=== PATIENT | male | born 1975 | race Caucasian/White ===

== ENCOUNTER 2017-08-04 02:20 | Emergency (ER) | payer SELFPAY ==
--- NOTE | 2017-08-04 02:36 | ED.PDOC ---
History of Present Illness - General Chief Complaint: Chest Pain/NH Stated Complaint: Heart racing Time Seen by Provider: 08/04/17 02:26 Source: patient Exam Limitations: no limitations - History of Present Illness Initial Comments: Franky Baez 42 y/o male stated woke up tonight feeling that his heart was racing.No chest pains no SOB no dizziness,no diaphoresis.Stated first time that he had rapid heart rate.Woke up his and was brought to ER Timing/Duration: 1-3 hours, other - NO CHEST PAINS Location: other - NO CHEST PAINS Activities at Onset: sleep Prior Chest Pain/Cardiac Workup: no prior cardiac workup Allergies/Adverse Reactions: Allergies NO KNOWN ALLERGY Allergy (Verified 01/15/14 14:33) Home Medications: Ambulatory Orders Acetaminophen W/ Codeine [Tylenol W/ CODEINE #3] 1 ea PO Q4H PRN #12 01/15/14 Ibuprofen [Motrin Tab] 600 mg PO Q8H PRN #15 tab 01/15/14 Lisinopril [Prinivil] 5 mg PO DAILY 01/15/14 Review of Systems - Review of Systems Constitutional: States: no symptoms reported EENTM: States: no symptoms reported Respiratory: States: no symptoms reported Cardiology: States: see HPI Gastrointestinal/Abdominal: States: no symptoms reported All other Systems: Reviewed and Negative, No Change from Baseline Past Medical History (General) - Patient Medical History Hx Seizures: No Hx Stroke: No Hx Dementia: No Hx Asthma: No Hx of COPD: No Hx Cardiac Disorders: No Hx Congestive Heart Failure: No Hx Pacemaker: No Hx Hypertension: Yes Hx Thyroid Disease: No Hx Diabetes: No Hx Gastroesophageal Reflux: No Hx Renal Disease: No Hx Cancer: No Hx of HIV: No Hx Hepatitis C: No Hx MRSA: No Hx Other PMH: Yes - sleep apnea Surgical History: no surgical history - Vaccination History Hx Tetanus, Diphtheria Vaccination: Yes Hx Influenza Vaccination: No Hx Pneumococcal Vaccination: No - Social History Hx Tobacco Use: Yes Hx Chewing Tobacco Use: Yes Hx Alcohol Use: No Hx Substance Use: No Hx Substance Use Treatment: No Hx Depression: No Hx Physical Abuse: No Hx Emotional Abuse: No Family Medical History - Family History Paternal Hx Cardiac Disease: Yes Hx Family Diabetes: Yes Hx Family Cancer: Yes Maternal Hx Family Hypertension: Yes Hx Cardiac Disease: Yes Hx Family Diabetes: Yes Hx Family;Other: thyroid Physical Exam - Physical Exam General Appearance: Alert, Comfortable, No apparent distress Eyes, Ears, Nose, Throat Exam: normal ENT inspection Neck: full range of motion, supple, normal inspection Respiratory: chest non-tender, lungs clear, normal breath sounds, no respiratory distress Cardiovascular/Chest: normal peripheral pulses, no gallop, no murmur, irregularly irregular Gastrointestinal/Abdominal: non tender, soft, no organomegaly Extremity: non-tender, no pedal edema, no calf tenderness Neurologic: alert, oriented x 3 Skin Exam: normal color, warm/dry Progress - Progress Progress: 08/04/17 03:30 Vital Signs - 24 hr 08/04/17 08/04/17 08/04/17 02:22 02:30 02:50 Temperature 97.8 F Pulse Rate 134 H Pulse Rate [ 143 H Apical] Pulse Rate [ 137 H Left Radial] Respiratory 22 Rate Blood Pressure 192/99 216/106 163/82 [Left Arm] O2 Sat by Pulse 92 L Oximetry 08/04/17 08/04/17 03:00 03:05 Temperature Pulse Rate Pulse Rate [ Apical] Pulse Rate [ Left Radial] Respiratory Rate Blood Pressure 150/99 154/103 [Left Arm] O2 Sat by Pulse Oximetry - Results/Orders Results/Orders: 08/04/17 03:30 [email or web address] DRIP [Cardizem Drip] 125 mg Sodium Chloride 0.9% 100Ml [NS (NACL 0.9 %) 100ml] 100 ml IVPB PRN 08/04/17 03:45 EKG STAT Laboratory Results - last 24 hr 08/04/17 08/04/17 08/04/17 02:35 03:45 03:45 WBC 11.2 H RBC 5.81 Hgb 16.8 Hct 49.4 MCV 85.1 MCH 28.9 MCHC 33.9 RDW 14.0 Plt Count 283 MPV 8.5 Absolute Neuts (auto) 6.20 Absolute Lymphs (auto) 3.80 H Absolute Monos (auto) 1.00 H Absolute Eos (auto) 0.20 Absolute Basos (auto) 0.10 Neutrophils % 54.9 Lymphocytes % 33.7 Monocytes % 8.6 Eosinophils % 1.9 Basophils % 0.9 PT 12.1 INR 1.040 PTT (SP) 33.8 Sodium 139 Potassium 3.0 L Chloride 103 Carbon Dioxide 26 Anion Gap 13.0 BUN 10 Creatinine 0.91 BUN/Creatinine Ratio 11.0 Random Glucose 110 H Serum Osmolality 277.2 Calcium 9.1 Magnesium 2.1 Total Bilirubin 0.6 Direct Bilirubin 0.1 Indirect Bilirubin 0.5 AST 37 ALT 54 Alkaline Phosphatase 138 H Creatine Kinase 157 CK-MB (CK-2) 2.2 CK-MB (CK-2) % Not Reportable Troponin I < 0.02 B-Natriuretic Peptide 10.5 Serum Total Protein 8.0 Albumin 4.3 TSH 3.18 Urine Color Yellow Urine Appearance Clear Urine pH 5.5 Ur Specific [place] 1.015 Urine Protein Negative Urine Glucose (UA) Negative Urine Ketones Negative Urine Blood Negative Urine Nitrite Negative Urine Bilirubin Negative Urine Urobilinogen 0.2 Ur Leukocyte Esterase Negative Urine RBC 0 Urine WBC 0 Ur Epithelial Cells 0 Urine Bacteria Rare Urine Mucus Trace Urine Opiates Screen Negative Urine Barbiturates Negative Ur Phencyclidine Scrn Negative U Amphetamin/Meth Scrn Negative U Benzodiazepines Scrn Negative U Cocaine Metab Screen Negative U Cannabinoids Screen Negative - EKG/XRAY/CT EKG: Atrial, Fibrillation Comments: [id number] RVR XRAY: chest - borderline cardiomegaly Departure - Departure Clinical Impression: New onset atrial fibrillation Hypertension Qualifiers: Hypertension type: unspecified Qualified Code(s): I10 - Essential (primary) hypertension Time of Disposition: 05:33 Disposition: Transfer to Hospital Condition: Fair Departure Forms: Patient Portal Self Enrollment Home Medications: Ambulatory Orders Acetaminophen W/ Codeine [Tylenol W/ CODEINE #3] 1 ea PO Q4H PRN #12 01/15/14 Ibuprofen [Motrin Tab] 600 mg PO Q8H PRN #15 tab 01/15/14 Lisinopril [Prinivil] 5 mg PO DAILY 01/15/14 Transfer to Outside Facility - Transfer Information Accepting Provider:: D/W Dr. 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
[2017-08-04] MEDS ORDERED: LABETALOL INJ 5 MG/ML VIAL IV ONE (02:40)
[2017-08-04] MEDS ORDERED: LABETALOL INJ 5 MG/ML VIAL ONE (02:41)
[2017-08-04] MEDS ORDERED: POTASSIUM CHLORIDE 20 MEQ TAB PO ONE (03:08)
[2017-08-04] MEDS ORDERED: diltiaZEM DRIP 125 MG in SODIUM CHLORIDE 0.9% 100ML 100 ML IVPB SCH (03:30)
[2017-08-04] MEDS ORDERED: SODIUM CHLORIDE 0.9% 100ML 100 ML IVPB ONE (03:36)
[2017-08-04] MEDS ORDERED: diltiaZEM DRIP 125 MG/25 ML VIAL IVPB ONE (03:37)
--- NOTE | 2017-08-04 03:37 | RAD ---
Chest single view on 08/04/2017 CLINICAL INDICATION: Palpitations COMPARISON: None FINDINGS: Borderline cardiomegaly is noted. There is slight elevation of the right hemidiaphragm. The lungs are clear. Hilar and mediastinal contours are within normal limits. On a vascularity is within normal limits. IMPRESSION: No acute disease. Electronically signed by: David aYnes 08/04/2017 3:36 AM CDT
[2017-08-04 04:15] VITALS: TEMP 98.2
[2017-08-04 05:54] VITALS: BP 143/94; O2SAT 93
== END 2017-08-04 06:05 | disposition short-term general hospital (02) ==
LOC: ER 02:20
DX: I48.91 Unspecified atrial fibrillation (principal); I10 Essential (primary) hypertension; G47.30 Sleep apnea, unspecified; Z87.891 Personal history of nicotine dependence
CPT/HCPCS: 36415; 71045; 80048; 80076; 80307; 81001; 82550; 82553; 83880; 84443; 84484; 85025; 85610; 85730; 93005; J7050

== ENCOUNTER 2017-08-09 20:17 | Emergency (ER) | payer SELFPAY ==
[2017-08-09] MEDS ORDERED: METOPROLOL TARTRATE INJ 5 MG/5 ML VIAL IV ONE ×2 (20:31→20:33)
--- NOTE | 2017-08-09 20:33 | ED.PDOC ---
History of Present Illness - General Stated Complaint: PALPITAIONS Time Seen by Provider: 08/09/17 20:31 Source: patient Exam Limitations: no limitations - History of Present Illness Timing/Duration: 1/2 hour Severity: mild Improving Factors: nothing Worsening Factors: nothing Associated Symptoms: denies symptoms Allergies/Adverse Reactions: Allergies NO KNOWN ALLERGY Allergy (Verified 01/15/14 14:33) Home Medications: Ambulatory Orders Lisinopril [Prinivil] 20 mg PO DAILY 01/15/14 Metoprolol Tartrate 08/09/17 Review of Systems - Review of Systems Constitutional: States: no symptoms reported EENTM: States: no symptoms reported Respiratory: States: no symptoms reported Cardiology: States: palpitations Gastrointestinal/Abdominal: States: no symptoms reported Genitourinary: States: no symptoms reported Neurological: States: no symptoms reported Endocrine: States: no symptoms reported Hematologic/Lymphatic: States: no symptoms reported Past Medical History (General) - Patient Medical History Hx Seizures: No Hx Stroke: No Hx Dementia: No Hx Asthma: No Hx of COPD: No Hx Cardiac Disorders: No Hx Congestive Heart Failure: No Hx Pacemaker: No Hx Hypertension: Yes Hx Thyroid Disease: No Hx Diabetes: No Hx Gastroesophageal Reflux: No Hx Renal Disease: No Hx Cancer: No Hx of HIV: No Hx Hepatitis C: No Hx MRSA: No - Vaccination History Hx Tetanus, Diphtheria Vaccination: Yes Hx Influenza Vaccination: No Hx Pneumococcal Vaccination: No - Social History Hx Tobacco Use: Yes Hx Chewing Tobacco Use: Yes Hx Alcohol Use: No Hx Substance Use: No Hx Substance Use Treatment: No Hx Depression: No Hx Physical Abuse: No Hx Emotional Abuse: No Hx Suspected Abuse: No - Female History Patient : No Family Medical History - Family History Paternal Living Status: Age at (years of age): 53 Cause of : [place] Hx Family Asthma: No Hx Family Congestive Heart Failure: Yes Hx Family Hypertension: Yes Hx Family Stroke: No Hx Cardiac Disease: Yes Hx Family Diabetes: Yes Hx Family Cancer: Yes Maternal Living Status: Still Living Hx Family Asthma: No Hx Family Congestive Heart Failure: No Hx Family Hypertension: Yes Hx Family Stroke: No Hx Cardiac Disease: Yes Hx Family Diabetes: Yes Hx Family Cancer: Yes - Lung Hx Family;Other: thyroid Physical Exam - Physical Exam General Appearance: Alert, Comfortable Eye Exam: bilateral normal Ears, Nose, Throat: hearing grossly normal, normal ENT inspection, normal pharynx Neck: non-tender, full range of motion, supple Respiratory: chest non-tender, lungs clear, normal breath sounds, no respiratory distress, no accessory muscle use Cardiovascular/Chest: normal peripheral pulses, no edema, no gallop, no murmur, tachycardia Peripheral Pulses: radial,right: 2+, radial,left: 2+, femoral,right: 2+, femoral ,left: 2+, dorsalis pedis,right: 2+, dorsalis pedis,left: 2+ Gastrointestinal/Abdominal: normal bowel sounds, non tender, no organomegaly, no pulsatile mass Back Exam: normal inspection, no CVA tenderness, no vertebral tenderness Neurologic: aerospace control and warning systems II-XII nml as tested, no motor/sensory deficits, alert, normal mood/affect, oriented x 3 Progress - Results/Orders Results/Orders: REASSESSMENT PATIENT RESPONDED WELL TO LOPRESSOR HE IS ASYMPTOMATIC ANXIOUS TO GO HOME READY TO BE DISCHARGED Departure - Departure Clinical Impression: Palpitations, Hypertension Time of Disposition: 21:29 Disposition: Discharge to Home or Self Care Condition: Good Home Medications: Ambulatory Orders Lisinopril [Prinivil] 20 mg PO DAILY 01/15/14 Metoprolol Tartrate 08/09/17
[2017-08-09 21:42] VITALS: TEMP 97.5
[2017-08-09 21:49] VITALS: BP 126/72; O2SAT 95
== END 2017-08-09 21:49 | disposition home or self-care (01) ==
LOC: ER 20:17
DX: R00.2 Palpitations (principal); I10 Essential (primary) hypertension; Z87.891 Personal history of nicotine dependence

== ENCOUNTER 2018-03-14 20:15 | Emergency (ER) | payer SELFPAY ==
[2018-03-14 20:42] VITALS: TEMP 97.9; O2SAT 98
--- NOTE | 2018-03-14 21:10 | RAD ---
EXAM: Hand,Left 3 Views CLINICAL INDICATION: Left hand trauma, left hand pain COMPARISON: There is no previous study for comparison. FINDINGS: Three views of the left hand reveal no acute fracture or dislocation. There are two metallic foreign bodies in the soft tissues along the radial aspect of the proximal index finger including a 2.4 x 1.0 mm structure adjacent to the proximal phalanx and a 1.0 x 1.0 mm foreign body adjacent to the second metacarpal head. No other foreign bodies are seen. No bony destructive process is identified. IMPRESSION: Two small foreign bodies. Otherwise, no acute traumatic injury. Electronically signed by: Lit Bliss MD 03/14/2018 9:09 PM [facility]
--- NOTE | 2018-03-14 21:29 | RAD ---
EXAM: Wrist,Left 3 Views CLINICAL INDICATION: Left wrist pain, patient fell COMPARISON: There is no previous study for comparison. FINDINGS:Three views of the left wrist reveal no fracture. The carpal bones and carpal interosseous spaces are intact. There are no radiopaque foreign bodies. The osseous structures are intact and unremarkable. IMPRESSION: Negative left wrist radiographs. Electronically signed by: Lit Bliss MD 03/14/2018 9:28 PM [facility]
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
[2018-03-14 22:31] VITALS: BP 147/88
== END 2018-03-14 22:30 | disposition home or self-care (01) ==
LOC: ER 20:15
DX: S63.502A Unspecified sprain of left wrist, initial encounter (principal); I10 Essential (primary) hypertension; I48.91 Unspecified atrial fibrillation; W01.0XXA Fall on same level from slipping, tripping and stumbling without subsequent striking against object, initial encounter; Y92.9 Unspecified place or not applicable; Z79.899 Other long term (current) drug therapy; Y93.89 Activity, other specified; Z87.891 Personal history of nicotine dependence

== ENCOUNTER 2018-04-10 21:10 | Emergency (ER) | payer SELFPAY ==
[2018-04-10 21:24] VITALS: BP 172/102; TEMP 98.6; O2SAT 98
--- NOTE | 2018-04-10 21:31 | ED.PDOC ---
History of Present Illness - General Chief Complaint: ENT Problem Stated Complaint: ear pain/congestion Time Seen by Provider: 04/10/18 21:28 Source: patient Exam Limitations: no limitations - History of Present Illness Timing/Duration: abrupt, this morning Severity: moderate EENT Location: ear (L) Prearrival Treatment: no prearrival treatment Improving Factors: nothing Worsening Factors: nothing Associated Symptoms: nasal congestion/drainage, sore throat Allergies/Adverse Reactions: Allergies NO KNOWN ALLERGY Allergy (Verified 01/15/14 14:33) Home Medications: Ambulatory Orders Lisinopril [Prinivil] 20 mg PO DAILY 01/15/14 Amoxicillin & Pot Clavulanate [Augmentin Tab] 875 mg PO BID #20 tab 04/10/18 Metoprolol Succinate [Metoprolol Succinate ER] 50 mg PO BID 04/10/18 Tramadol HCl 50 mg PO Q4HR PRN #20 tab 04/10/18 Review of Systems - Review of Systems Constitutional: Denies: chills, fever EENTM: States: ear pain, nose congestion. Denies: throat pain, throat swelling Respiratory: Denies: cough, short of breath Cardiology: Denies: chest pain Gastrointestinal/Abdominal: Denies: nausea, vomiting Musculoskeletal: States: no symptoms reported Skin: States: no symptoms reported Neurological: States: no symptoms reported Past Medical History (General) - Patient Medical History Hx Seizures: No Hx Stroke: No Hx Dementia: No Hx Asthma: No Hx of COPD: No Hx Cardiac Disorders: Yes - a-fib Hx Congestive Heart Failure: No Hx Pacemaker: No Hx Hypertension: Yes Hx Thyroid Disease: No Hx Diabetes: No Hx Gastroesophageal Reflux: No Hx Renal Disease: No Hx Cancer: No Hx of HIV: No Hx Hepatitis C: No Hx MRSA: No Surgical History: no surgical history - Vaccination History Hx Tetanus, Diphtheria Vaccination: Yes Hx Influenza Vaccination: No Hx Pneumococcal Vaccination: No - Social History Hx Tobacco Use: Yes Hx Chewing Tobacco Use: Yes Hx Alcohol Use: No Hx Substance Use: No Hx Substance Use Treatment: No Hx Depression: No Hx Physical Abuse: No Hx Emotional Abuse: No Hx Suspected Abuse: No - Female History Patient : No - Triage Comment ED Triage Comment: Nasal drainage, ears hurt and feel congested/pressure Family Medical History - Family History Paternal Living Status: Age at (years of age): 53 Cause of : [place] Hx Family Asthma: No Hx Family Congestive Heart Failure: Yes Hx Family Hypertension: Yes Hx Family Stroke: No Hx Cardiac Disease: Yes Hx Family Diabetes: Yes Hx Family Cancer: Yes Maternal Living Status: Still Living Hx Family Asthma: No Hx Family Congestive Heart Failure: No Hx Family Hypertension: Yes Hx Family Stroke: No Hx Cardiac Disease: Yes Hx Family Diabetes: Yes Hx Family Cancer: Yes - Lung Hx Family;Other: thyroid Physical Exam - Physical Exam General Appearance: Alert, Restless Eye Exam: bilateral normal Ear Exam: bilateral ear: TM red Nasal Exam: normal inspection Throat Exam: pharynx normal Neck: non-tender, full range of motion Cardiovascular/Respiratory: regular rate, rhythm Departure - Departure Clinical Impression: Otitis media Qualifiers: Otitis media type: suppurative Chronicity: acute Laterality: bilateral Recurrence: non-recurrent Disposition: Discharge to Home or Self Care Departure Forms: ED Discharge - Pt. Copy, Patient Portal Self Enrollment Prescriptions: Tramadol HCl 50 mg PO Q4HR PRN #20 tab PRN Reason: Moderate To Severe Pain Amoxicillin & Pot Clavulanate [Augmentin Tab] 875 mg PO BID #20 tab Home Medications: Ambulatory Orders Lisinopril [Prinivil] 20 mg PO DAILY 01/15/14 Amoxicillin & Pot Clavulanate [Augmentin Tab] 875 mg PO BID #20 tab 04/10/18 Metoprolol Succinate [Metoprolol Succinate ER] 50 mg PO BID 04/10/18 Tramadol HCl 50 mg PO Q4HR PRN #20 tab 04/10/18
[2018-04-10] MEDS ORDERED: HYDROcodone 7.5MG/APAP 325MG 1 EA TAB PO ONE (21:38)
[2018-04-10] MEDS ORDERED: AMOXICILLIN & POT CLAVULANATE 875 MG TAB PO ONE (21:39)
== END 2018-04-10 21:49 | disposition home or self-care (01) ==
LOC: ER 21:10
DX: H66.93 Otitis media, unspecified, bilateral (principal); I48.91 Unspecified atrial fibrillation; I10 Essential (primary) hypertension; Z87.891 Personal history of nicotine dependence

== ENCOUNTER 2018-09-19 20:33 | Emergency (ER) | payer SELFPAY ==
--- NOTE | 2018-09-19 20:53 | ED.PDOC ---
History of Present Illness - General Chief Complaint: Abdominal Pain Stated Complaint: abdominal pain Time Seen by Provider: 09/19/18 20:36 Information Source: patient Exam Limitations: no limitations - History of Present Illness Initial Comments: patient comes in today with 12 hour history of right lower quadrant abdominal pain. Patient states the pain comes and goes and seems to get better when he pulls his knees up or when he stands straight. The pain is a 6 out of 10 at its worst and not associated with any diarrhea or constipation. Patient's had no nausea or vomiting and denies any fever or chills although he does have increased temp on arrival. Patient has had no questionable by mouth intake and no recent travel. Patient does have a history of atrial fibrillation, hypertension, and obstructive sleep apnea. He also states that several years ago he started having severe abdominal pain and was found to have a spontaneous perforation in his colon. He was placed on antibiotics and did not have to have surgery at that time and has not had any problems since. He states he has not passed any gas since his bowel movement at approximately noon today. Abdominal Pain Onset Location: RLQ Pain Radiation: no radiation Quality: moderate, intermittent, sharpness Timing/Duration: 24 hours Improving Factors: movement Worsening Factors: nothing Associated Symptoms: denies symptoms Review of Systems - Review of Systems Constitutional: States: no symptoms reported. Denies: chills, fever, malaise EENTM: States: no symptoms reported Respiratory: States: no symptoms reported. Denies: cough, short of breath Cardiology: States: no symptoms reported. Denies: chest pain, edema, palpitations Gastrointestinal/Abdominal: States: abdominal pain. Denies: constipation, diarrhea, nausea, vomiting Genitourinary: States: no symptoms reported. Denies: discharge, dysuria, frequency, hematuria Musculoskeletal: States: no symptoms reported Skin: States: rash - senior care rash on abdomen from belt buckle Past Medical History (General) - Patient Medical History Hx Seizures: No Hx Stroke: No Hx Dementia: No Hx Asthma: No Hx of COPD: No Hx Cardiac Disorders: Yes - a-fib Hx Congestive Heart Failure: No Hx Pacemaker: No Hx Hypertension: Yes Hx Thyroid Disease: No Hx Diabetes: No Hx Gastroesophageal Reflux: No Hx Renal Disease: No Hx Cancer: No Hx of HIV: No Hx Hepatitis C: No Hx MRSA: No - Vaccination History Hx Tetanus, Diphtheria Vaccination: Yes Hx Influenza Vaccination: No Hx Pneumococcal Vaccination: No - Social History Hx Tobacco Use: Yes Hx Chewing Tobacco Use: Yes Hx Alcohol Use: No Hx Substance Use: No Hx Substance Use Treatment: No Hx Depression: No Hx Physical Abuse: No Hx Emotional Abuse: No Hx Suspected Abuse: No - Female History Patient : No - Triage Comment ED Triage Comment: lower abdominal pain since 0900, intermittant in nature, denies N/V/D. Family Medical History - Family History Paternal Living Status: Age at (years of age): 53 Cause of : [place] Hx Family Asthma: No Hx Family Congestive Heart Failure: Yes Hx Family Hypertension: Yes Hx Family Stroke: No Hx Cardiac Disease: Yes Hx Family Diabetes: Yes Hx Family Cancer: Yes Maternal Living Status: Still Living Hx Family Asthma: No Hx Family Congestive Heart Failure: No Hx Family Hypertension: Yes Hx Family Stroke: No Hx Cardiac Disease: Yes Hx Family Diabetes: Yes Hx Family Cancer: Yes - Lung Hx Family;Other: thyroid Physical Exam - Physical Exam General Appearance: Alert, Comfortable, No apparent distress Eyes, Ears, Nose, Throat Exam: PERRL/EOMI, normal ENT inspection, TMs normal, pharynx normal Neck: non-tender, full range of motion, supple, normal inspection Respiratory: chest non-tender, lungs clear, normal breath sounds, no respiratory distress Cardiovascular/Chest: normal peripheral pulses, regular rate, rhythm, no edema, no murmur Peripheral Pulses: No deficit Gastrointestinal/Abdominal: soft, tenderness - TTP RLQ with no rebound no guarding, other - no blanching erythematous plaque on lower abdomen Progress - Progress Progress: 09/19/18 22:08 Discussed with patient results. He understands even if no perforation now it can happen again and if he worsens he should return immediately. Patient is feeling better and understands precautions. - Results/Orders Results/Orders: Patient Name: NOEMI SANCHEZ Gender: Male Date of : 1975 Referring Physician: JUANA ARROYO Organization: [facility] Accession Number: [id number] Requested Date: September 19, 2018 20:50 Report Status: Final Requested Procedure: 1 Procedure Description: Abdoment/Pelvis w/o Contrast Modality: CT Findings Reporting MD: Rowena Hussein MD: Not available Dictation Time: Vehicle Service Attendant: Not available Donor Relations Officer Date: PROCEDURE: CT Abdomen/Pelvis w/o Contrast CLINICAL HISTORY: 43 years Male RLQ pain, hx of perforation colon TECHNIQUE: Contiguous axial images obtained through the abdomen and pelvis without IV contrast. Coronal and sagittal reformatted images provided. This CT exam was performed according to our departmental dose-optimization program, which includes one or more of the following dose reduction techniques: automated exposure control, adjustment of the mA and/or kV according to patient size, and/or use of iterative reconstruction technique. COMPARISON: Comparison is made to the prior examination dated 11/18/2008. FINDINGS: There are acute inflammatory changes in the central upper pelvis, centered at an inflamed mid sigmoid diverticulum. There are a few bubbles of gas in the wall of the inflamed diverticulum. No definite free intraperitoneal air or drainable abscess. There is diffuse sigmoid diverticulosis. No bowel obstruction or other bowel inflammation. Normal appendix. Mild patchy bibasilar atelectasis. Steatosis of the liver, which is enlarged without focal lesion on this noncontrast study. Fatty replacement of the pancreas. The spleen, adrenal glands, kidneys, urinary bladder, and osseous structures are normal. IMPRESSION: Acute mid sigmoid diverticulitis. There our a few bubbles of gas in the wall of the inflamed diverticulum without definite free intraperitoneal air, drainable abscess, or bowel obstruction. Electronically signed by: Rowena Hussein MD 09/19/2018 9:24 PM CDT Laboratory Results WBC 11.8 K/mm3 (4.8-10.8) H 09/19/18 21:10 RBC 4.89 M/mm3 (4.70-6.10) 09/19/18 21:10 Hgb 14.6 gm/dL (14.0-18.0) 09/19/18 21:10 Hct 42.9 % (42.0-52.0) 09/19/18 21:10 MCV 87.7 fl (80.0-94.0) 09/19/18 21:10 MCH 29.9 pg (27.0-31.0) 09/19/18 21:10 MCHC 34.1 g/dL (33.0-37.0) 09/19/18 21:10 RDW 13.8 % (11.5-14.5) 09/19/18 21:10 Plt Count 241 K/mm3 (130-400) 09/19/18 21:10 MPV 8.0 fl (7.40-10.4) 09/19/18 21:10 Absolute Neuts (auto) 9.40 K/uL (1.8-6.8) H 09/19/18 21:10 Absolute Lymphs (auto) 1.40 K/uL (1.0-3.4) 09/19/18 21:10 Absolute Monos (auto) 0.80 K/uL (0.2-0.8) 09/19/18 21:10 Absolute Eos (auto) 0.10 K/uL (0.0-0.4) 09/19/18 21:10 Absolute Basos (auto) 0.00 K/uL (0.0-0.1) 09/19/18 21:10 Neutrophils % 79.4 % (42.0-78.0) H 09/19/18 21:10 Lymphocytes % 12.3 % (20.0-50.0) L 09/19/18 21:10 Monocytes % 6.9 % (2.0-9.0) 09/19/18 21:10 Eosinophils % 1.0 % (1.0-5.0) 09/19/18 21:10 Basophils % 0.4 % (0.0-2.0) 09/19/18 21:10 Sodium 138 mmol/L (135-145) 09/19/18 21:10 Potassium 3.5 mmol/L (3.6-5.0) L 09/19/18 21:10 Chloride 105 mmol/L (101-111) 09/19/18 21:10 Carbon Dioxide 24 mmol/L (21-31) 09/19/18 21:10 Anion Gap 12.5 (12-18) 09/19/18 21:10 BUN 11 mg/dL (7-18) 09/19/18 21:10 Creatinine 0.93 mg/dL (0.6-1.3) 09/19/18 21:10 BUN/Creatinine Ratio 11.8 (10-20) 09/19/18 21:10 Random Glucose 93 mg/dL (70-105) 09/19/18 21:10 Serum Osmolality 274.8 mOsm/L (275-295) L 09/19/18 21:10 Calcium 9.0 mg/dL (8.4-10.2) 09/19/18 21:10 Total Bilirubin 0.7 mg/dL (0.2-1.0) 09/19/18 21:10 AST 25 IU/L (10-42) 09/19/18 21:10 ALT 39 IU/L (10-60) 09/19/18 21:10 Alkaline Phosphatase 123 IU/L (42-121) H 09/19/18 21:10 Serum Total Protein 7.6 gm/dL (6.4-8.2) 09/19/18 21:10 Albumin 4.1 g/dl (3.2-5.5) 09/19/18 21:10 Globulin 3.5 gm/dL (2.3-3.5) 09/19/18 21:10 Albumin/Globulin Ratio 1.2 (1.1-1.9) 09/19/18 21:10 Urine Color Yellow (Yellow) 09/19/18 21:10 Urine Appearance Clear (Clear) 09/19/18 21:10 Urine pH 6.0 (4.5-7.8) 09/19/18 21:10 Ur Specific [place] 1.010 (1.005-1.030) 09/19/18 21:10 Urine Protein Negative mg/dL 09/19/18 21:10 Urine Glucose (UA) Negative mg/dL (Negative) 09/19/18 21:10 Urine Ketones Negative mg/dL (NEGATIVE) 09/19/18 21:10 Urine Blood Negative (Negative) 09/19/18 21:10 Urine Nitrite Negative 09/19/18 21:10 Urine Bilirubin Negative (NEGATIVE) 09/19/18 21:10 Urine Urobilinogen 0.2 mg/dL (0.2-1.0) 09/19/18 21:10 Ur Leukocyte Esterase Negative (Negative) 09/19/18 21:10 Urine RBC 0 /hpf 09/19/18 21:10 Urine WBC 0 /hpf 09/19/18 21:10 Ur Epithelial Cells 0 /hpf 09/19/18 21:10 Urine Bacteria 0 09/19/18 21:10 Departure - Departure Clinical Impression: Diverticulitis large intestine w/o perforation or abscess w/o bleeding Disposition: Discharge to Home or Self Care Departure Forms: ED Discharge - Pt. Copy, Patient Portal Self Enrollment Instructions: DI for Abdominal Pain-Adult Referrals: Shira Ewing NP [Primary Care Provider] - 1-2 Weeks Prescriptions: Ciprofloxacin [Cipro] 500 mg PO BID #14 tab metroNIDAZOLE [Flagyl] 500 mg PO BID #14 tab Home Medications: Ambulatory Orders Lisinopril [Prinivil] 20 mg PO DAILY 01/15/14 Metoprolol Succinate [Metoprolol Succinate ER] 50 mg PO BID 04/10/18 Ciprofloxacin [Cipro] 500 mg PO BID #14 tab 09/19/18 metroNIDAZOLE [Flagyl] 500 mg PO BID #14 tab 09/19/18
--- NOTE | 2018-09-19 21:26 | CT ---
PROCEDURE: CT Abdomen/Pelvis w/o Contrast CLINICAL HISTORY: 43 years Male RLQ pain, hx of perforation colon TECHNIQUE: Contiguous axial images obtained through the abdomen and pelvis without IV contrast. Coronal and sagittal reformatted images provided. This CT exam was performed according to our departmental dose-optimization program, which includes one or more of the following dose reduction techniques: automated exposure control, adjustment of the mA and/or kV according to patient size, and/or use of iterative reconstruction technique. COMPARISON: Comparison is made to the prior examination dated 11/18/2008. FINDINGS: There are acute inflammatory changes in the central upper pelvis, centered at an inflamed mid sigmoid diverticulum. There are a few bubbles of gas in the wall of the inflamed diverticulum. No definite free intraperitoneal air or drainable abscess. There is diffuse sigmoid diverticulosis. No bowel obstruction or other bowel inflammation. Normal appendix. Mild patchy bibasilar atelectasis. Steatosis of the liver, which is enlarged without focal lesion on this noncontrast study. Fatty replacement of the pancreas. The spleen, adrenal glands, kidneys, urinary bladder, and osseous structures are normal. IMPRESSION: Acute mid sigmoid diverticulitis. There our a few bubbles of gas in the wall of the inflamed diverticulum without definite free intraperitoneal air, drainable abscess, or bowel obstruction. Electronically signed by: Rowena Hussein MD 09/19/2018 9:24 PM CDT
[2018-09-19] MEDS ORDERED: metroNIDAZOLE 500 MG TAB PO ONE (22:03)
[2018-09-19] MEDS ORDERED: CIPROFLOXACIN 500 MG TAB PO ONE (22:03)
[2018-09-19 22:27] VITALS: BP 142/89; TEMP 99.1; O2SAT 95
== END 2018-09-19 22:27 | disposition home or self-care (01) ==
LOC: ER 20:33
DX: K57.32 Diverticulitis of large intestine without perforation or abscess without bleeding (principal); I48.91 Unspecified atrial fibrillation; I10 Essential (primary) hypertension; Z87.891 Personal history of nicotine dependence

== ENCOUNTER 2018-11-29 19:17 | Emergency (ER) | payer SELFPAY ==
[2018-11-29 19:38] VITALS: O2SAT 95
--- NOTE | 2018-11-29 20:13 | RAD ---
EXAM DESCRIPTION: Toes,Left CLINICAL HISTORY: 43 years Male trauma to toes 1,2 3 yesterday COMPARISON: None. TECHNIQUE: LEFT toe, three views FINDINGS: No acute fractures or dislocations are identified. No osseous destructive lesions. No radiopaque foreign object noted. IMPRESSION: No acute fracture is identified. Electronically signed by: Madison Broussard MD 11/29/2018 8:11 PM CDT
--- NOTE | 2018-11-29 20:29 | ED.PDOC ---
History of Present Illness - General Chief Complaint: Skin/Abrasion/Tear Stated Complaint: Left foot toes pain Time Seen by Provider: 11/29/18 19:21 Source: patient Exam Limitations: no limitations - History of Present Illness Initial Comments: the patient is a 43-year-old male presenting to the emergency room secondary to persistent pain in his left foot. About 24 hours ago his left foot sustained blunt trauma giving pain to the first 3 digits of the left foot. There is some bruising to the dorsal aspect of the first toe. No other injuries. No proximal pain. No gross deformity other than swelling. He does appear to be neurovascularly preserved. No lacerations. Movement is limited primarily due to pain. Timing/Duration: 24 hours Severity: moderate Improving Factors: immobilization Worsening Factors: movement Associated Symptoms: denies symptoms Allergies/Adverse Reactions: Allergies NO KNOWN ALLERGY Allergy (Verified 01/15/14 14:33) Home Medications: Ambulatory Orders Lisinopril [Prinivil] 20 mg PO DAILY 01/15/14 Metoprolol Succinate [Metoprolol Succinate ER] 50 mg PO BID 04/10/18 Ciprofloxacin [Cipro] 500 mg PO BID #14 tab 09/19/18 metroNIDAZOLE [Flagyl] 500 mg PO BID #14 tab 09/19/18 Review of Systems - Review of Systems Constitutional: States: no symptoms reported EENTM: States: no symptoms reported Respiratory: States: no symptoms reported Cardiology: States: no symptoms reported Gastrointestinal/Abdominal: States: no symptoms reported Genitourinary: States: no symptoms reported Musculoskeletal: States: see HPI Skin: States: see HPI Neurological: States: no symptoms reported Endocrine: States: no symptoms reported All other Systems: No Change from Baseline Past Medical History (General) - Patient Medical History Hx Seizures: No Hx Stroke: No Hx Dementia: No Hx Asthma: No Hx of COPD: No Hx Cardiac Disorders: Yes - a-fib Hx Congestive Heart Failure: No Hx Pacemaker: No Hx Hypertension: Yes Hx Thyroid Disease: No Hx Diabetes: No Hx Gastroesophageal Reflux: No Hx Renal Disease: No Hx Cancer: No Hx of HIV: No Hx Hepatitis C: No Hx MRSA: No Surgical History: no surgical history - Vaccination History Hx Tetanus, Diphtheria Vaccination: No Hx Influenza Vaccination: No Hx Pneumococcal Vaccination: No - Social History Hx Tobacco Use: Yes Hx Chewing Tobacco Use: Yes Hx Alcohol Use: No Hx Substance Use: No Hx Substance Use Treatment: No Hx Depression: No Hx Physical Abuse: No Hx Emotional Abuse: No Hx Suspected Abuse: No - Female History Patient : No Family Medical History - Family History Paternal Living Status: Age at (years of age): 53 Cause of : [place] Hx Family Asthma: No Hx Family Congestive Heart Failure: Yes Hx Family Hypertension: Yes Hx Family Stroke: No Hx Cardiac Disease: Yes Hx Family Diabetes: Yes Hx Family Cancer: Yes Maternal Living Status: Still Living Hx Family Asthma: No Hx Family Congestive Heart Failure: No Hx Family Hypertension: Yes Hx Family Stroke: No Hx Cardiac Disease: Yes Hx Family Diabetes: Yes Hx Family Cancer: Yes - Lung Hx Family;Other: thyroid Physical Exam - Physical Exam General Appearance: Alert, Comfortable, No apparent distress Eye Exam: bilateral normal Ears, Nose, Throat: hearing grossly normal Neck: full range of motion Respiratory: no respiratory distress, no accessory muscle use Cardiovascular/Chest: normal peripheral pulses, no edema Peripheral Pulses: dorsalis pedis,right: 2+, dorsalis pedis,left: 2+, posterior tibialis,right: 2+, posterior tibialis,left: 2+ Gastrointestinal/Abdominal: other - morbidly obese Rectal Exam: deferred Extremity: no calf tenderness, normal capillary refill, other - see history of present illness. Neurologic: qm nurse II-XII nml as tested, no motor/sensory deficits, alert, normal mood/affect, oriented x 3 Skin Exam: normal color - except for bruising on the first toe left foot Comments: Vital Signs - 24 hr 11/29/18 19:32 Temperature 98.3 F Pulse Rate [ 84 left] Respiratory 20 Rate Blood Pressure 148/101 [left] O2 Sat by Pulse 95 Oximetry Progress - Progress Progress: 11/29/18 20:29 the patient's a 43-year-old male presenting after blunt trauma to the left foot 24 hours prior. X-ray of the foot shows no evidence of any fracture or dislocation. He likely simply jammed the first 3 digits. He does appear to be neurovascularly intact. Range of motion is limited at this time secondary to swelling. If he is having any continued problems after another week or so then a repeat evaluation may be warranted. Motrin can be used for discomfort. ER warnings were given. Departure - Departure Clinical Impression: Trauma of toe of left foot Qualifiers: Encounter type: initial encounter Qualified Code(s): S99.922A - Unspecified injury of left foot, initial encounter Disposition: Discharge to Home or Self Care Condition: Good Departure Forms: ED Discharge - Pt. Copy, Patient Portal Self Enrollment Instructions: Sprain (DC) Diet: regular diet Activity: other Referrals: Shira Ewing NP [Primary Care Provider] - 1-2 Weeks Home Medications: Ambulatory Orders Lisinopril [Prinivil] 20 mg PO DAILY 01/15/14 Metoprolol Succinate [Metoprolol Succinate ER] 50 mg PO BID 04/10/18 Ciprofloxacin [Cipro] 500 mg PO BID #14 tab 09/19/18 metroNIDAZOLE [Flagyl] 500 mg PO BID #14 tab 09/19/18 Additional Instructions: the patient's a 43-year-old male presenting after blunt trauma to the left foot 24 hours prior. X-ray of the foot shows no evidence of any fracture or dislocation. He likely simply jammed the first 3 digits. He does appear to be neurovascularly intact. Range of motion is limited at this time secondary to swelling. If he is having any continued problems after another week or so then a repeat evaluation may be warranted. Motrin can be used for discomfort. ER warnings were given.
[2018-11-29 21:48] VITALS: BP 152/94; TEMP 97.9
== END 2018-11-29 21:48 | disposition home or self-care (01) ==
LOC: ER 19:17
DX: S90.112A Contusion of left great toe without damage to nail, initial encounter (principal); E66.01 Morbid (severe) obesity due to excess calories; I48.91 Unspecified atrial fibrillation; I10 Essential (primary) hypertension; X58.XXXA Exposure to other specified factors, initial encounter; Y92.9 Unspecified place or not applicable; Y93.89 Activity, other specified; Z87.891 Personal history of nicotine dependence; Z79.899 Other long term (current) drug therapy; Z68.36 Body mass index [BMI] 36.0-36.9, adult

== ENCOUNTER 2019-05-02 22:58 | Emergency (ER) | payer SELFPAY ==
--- NOTE | 2019-05-02 23:40 | ED.PDOC ---
History of Present Illness - General Time Seen by Provider: 05/02/19 23:38 Additional Information: Patient is a 44-year-old male who presents to the ED with chief complaint of flulike symptoms. Patient indicates that his grandson was very recently diagnosed with the flu and he sleeps with patient at night. Patient indicates he is coming down with exactly the same symptoms that his grandson has. Patient complains of myalgia, subjective fever, mild sore throat, and occasional dry cough, mild stuffy and runny nose. Patient denies chest pain, shortness of breath, abdominal pain. Patient has no other concerns at this time. - History of Present Illness Allergies/Adverse Reactions: Allergies NO KNOWN ALLERGY Allergy (Verified 01/15/14 14:33) Home Medications: Ambulatory Orders Lisinopril [Prinivil] 20 mg PO DAILY 01/15/14 Metoprolol Succinate [Metoprolol Succinate ER] 50 mg PO BID 04/10/18 Ciprofloxacin [Cipro] 500 mg PO BID #14 tab 09/19/18 metroNIDAZOLE [Flagyl] 500 mg PO BID #14 tab 09/19/18 Acetaminophen [Tylenol] 650 mg PO Q6H #50 tab 05/02/19 Oseltamivir Capsule [Tamiflu] 75 mg PO DAILY 5 Days #5 capsule 05/02/19 Review of Systems - Review of Systems Constitutional: States: fever. Denies: chills EENTM: States: see HPI, nose congestion. Denies: throat swelling Respiratory: States: see HPI, cough. Denies: orthopnea, short of breath, stridor, wheezing Cardiology: States: no symptoms reported. Denies: chest pain, edema, palpitations Gastrointestinal/Abdominal: States: no symptoms reported. Denies: abdominal pain, nausea, vomiting Genitourinary: States: no symptoms reported. Denies: dysuria Musculoskeletal: States: muscle pain. Denies: neck pain Skin: States: no symptoms reported. Denies: rash Neurological: States: no symptoms reported All other Systems: Reviewed and Negative Past Medical History (General) - Patient Medical History Hx Seizures: No Hx Stroke: No Hx Dementia: No Hx Asthma: No Hx of COPD: No Hx Cardiac Disorders: Yes - a-fib Hx Congestive Heart Failure: No Hx Pacemaker: No Hx Hypertension: Yes Hx Thyroid Disease: No Hx Diabetes: No Hx Gastroesophageal Reflux: No Hx Renal Disease: No Hx Cancer: No Hx of HIV: No Hx Hepatitis C: No Hx MRSA: No - Vaccination History Hx Tetanus, Diphtheria Vaccination: No Hx Influenza Vaccination: No Hx Pneumococcal Vaccination: No - Social History Hx Tobacco Use: Yes Hx Chewing Tobacco Use: Yes Hx Alcohol Use: No Hx Substance Use: No Hx Substance Use Treatment: No Hx Depression: No Hx Physical Abuse: No Hx Emotional Abuse: No Hx Suspected Abuse: No - Female History Patient : No Family Medical History - Family History Paternal Living Status: Age at (years of age): 53 Cause of : [place] Hx Family Asthma: No Hx Family Congestive Heart Failure: Yes Hx Family Hypertension: Yes Hx Family Stroke: No Hx Cardiac Disease: Yes Hx Family Diabetes: Yes Hx Family Cancer: Yes Maternal Living Status: Still Living Hx Family Asthma: No Hx Family Congestive Heart Failure: No Hx Family Hypertension: Yes Hx Family Stroke: No Hx Cardiac Disease: Yes Hx Family Diabetes: Yes Hx Family Cancer: Yes - Lung Hx Family;Other: thyroid Physical Exam - Physical Exam General Appearance: Alert, No apparent distress, Well Developed, Well Nourished ENT Exam: normal ENT inspection, pharynx normal, nasal congestion Neck: non-tender, full range of motion, supple, normal inspection, trachea midline Respiratory: chest non-tender, lungs clear, normal breath sounds, no respiratory distress, no accessory muscle use Cardiovascular/Chest: normal peripheral pulses, regular rate, rhythm, no edema, no gallop, no JVD, no murmur Gastrointestinal/Abdominal: normal bowel sounds, non tender, soft, no organomegaly Extremity: normal range of motion, non-tender Neurologic: auger machine offbearer II-XII nml as tested, no motor/sensory deficits, alert, normal mood/affect, oriented x 3 Skin Exam: normal color Progress - Progress Progress: 05/02/19 23:43 Patient with flulike symptoms in the setting of grandson with laboratory diagnosed flu. Will not test patient but will treat empirically with Tamiflu and patient to rest and follow-up with his PCP. Vital signs stable, patient is NAD and looks clinically well and I believe is safe for discharge with outpatient follow-up. Follow-up instructions, discharge instructions and return to ED precautions discussed with patient. Patient voices understanding and willingness to comply with instructions. All laboratory and radiographic results have been discussed with the patient, and all questions answered. Patient is happy with plan. Departure - Departure Clinical Impression: Viral respiratory illness Disposition: Discharge to Home or Self Care Condition: Good Instructions: Flu, Adult (DC) Referrals: Shira Ewing NP [Primary Care Provider] - 1-5 Days Prescriptions: Acetaminophen [Tylenol] 650 mg PO Q6H #50 tab Oseltamivir Capsule [Tamiflu] 75 mg PO DAILY 5 Days #5 capsule Home Medications: Ambulatory Orders Lisinopril [Prinivil] 20 mg PO DAILY 01/15/14 Metoprolol Succinate [Metoprolol Succinate ER] 50 mg PO BID 04/10/18 Ciprofloxacin [Cipro] 500 mg PO BID #14 tab 09/19/18 metroNIDAZOLE [Flagyl] 500 mg PO BID #14 tab 09/19/18 Acetaminophen [Tylenol] 650 mg PO Q6H #50 tab 05/02/19 Oseltamivir Capsule [Tamiflu] 75 mg PO DAILY 5 Days #5 capsule 05/02/19
[2019-05-03 00:16] VITALS: BP 114/66; TEMP 100.1; O2SAT 97
== END 2019-05-03 00:17 | disposition home or self-care (01) ==
LOC: ER 22:58
DX: B34.9 Viral infection, unspecified (principal); I10 Essential (primary) hypertension; I48.91 Unspecified atrial fibrillation; Z87.891 Personal history of nicotine dependence; Z79.899 Other long term (current) drug therapy

== ENCOUNTER 2019-05-10 20:04 | Emergency (ER) | payer SELFPAY ==
--- NOTE | 2019-05-10 20:55 | ED.PDOC ---
History of Present Illness - General Chief Complaint: GI Problem Stated Complaint: nausea, ears stopped up, high heart rate Time Seen by Provider: 05/10/19 20:45 Source: patient, RN notes reviewed, Vital Signs reviewed, family - Exam Limitations: no limitations - History of Present Illness Initial Comments: Patient presents with concerns about his heart rate being too low. His heart rate was running in the 80s he did not take it metoprolol. He then noticed his heart rate going up and his blood pressure going up. Also complains about his ears being clogged up and nasal congestion. Timing/Duration: 1 week Severity: mild Improving Factors: nothing Worsening Factors: nothing Associated Symptoms: cough Allergies/Adverse Reactions: Allergies NO KNOWN ALLERGY Allergy (Verified 05/03/19 00:16) Home Medications: Ambulatory Orders Lisinopril [Prinivil] 20 mg PO DAILY 01/15/14 Metoprolol Succinate [Metoprolol Succinate ER] 50 mg PO BID 04/10/18 Ciprofloxacin [Cipro] 500 mg PO BID #14 tab 09/19/18 metroNIDAZOLE [Flagyl] 500 mg PO BID #14 tab 09/19/18 Acetaminophen [Tylenol] 650 mg PO Q6H #50 tab 05/02/19 Oseltamivir Capsule [Tamiflu] 75 mg PO DAILY 5 Days #5 capsule 05/02/19 Review of Systems - Review of Systems Constitutional: States: see HPI. Denies: chills, fever, weakness EENTM: States: ear pain, nose congestion. Denies: blurred vision, nose pain Respiratory: States: no symptoms reported. Denies: cough, short of breath Cardiology: States: palpitations. Denies: chest pain, edema, syncope Gastrointestinal/Abdominal: States: no symptoms reported. Denies: abdominal pain, diarrhea, nausea, vomiting Genitourinary: States: no symptoms reported Musculoskeletal: States: no symptoms reported. Denies: back pain, joint swelling, muscle stiffness, neck pain Skin: States: no symptoms reported. Denies: change in color, rash Neurological: Denies: no symptoms reported, paresthesia, tingling, weakness Endocrine: Denies: no symptoms reported, flushing, intolerance to cold, intolerance to heat Hematologic/Lymphatic: Denies: no symptoms reported, easy bleeding, easy bruising All other Systems: Reviewed and Negative Past Medical History (General) - Patient Medical History Hx Seizures: No Hx Stroke: No Hx Dementia: No Hx Asthma: No Hx of COPD: No Hx Cardiac Disorders: Yes - a-fib Hx Congestive Heart Failure: No Hx Pacemaker: No Hx Hypertension: Yes Hx Thyroid Disease: No Hx Diabetes: No Hx Gastroesophageal Reflux: No Hx Renal Disease: No Hx Cancer: No Hx of HIV: No Hx Hepatitis C: No Hx MRSA: No - Vaccination History Hx Tetanus, Diphtheria Vaccination: No Hx Influenza Vaccination: No Hx Pneumococcal Vaccination: No - Social History Hx Tobacco Use: Yes Hx Chewing Tobacco Use: Yes Hx Alcohol Use: No Hx Substance Use: No Hx Substance Use Treatment: No Hx Depression: No Hx Physical Abuse: No Hx Emotional Abuse: No Hx Suspected Abuse: No - Female History Patient : No Family Medical History - Family History Paternal Living Status: Age at (years of age): 53 Cause of : AL Hx Family Asthma: No Hx Family Congestive Heart Failure: Yes Hx Family Hypertension: Yes Hx Family Stroke: No Hx Cardiac Disease: Yes Hx Family Diabetes: Yes Hx Family Cancer: Yes Maternal Living Status: Still Living Hx Family Asthma: No Hx Family Congestive Heart Failure: No Hx Family Hypertension: Yes Hx Family Stroke: No Hx Cardiac Disease: Yes Hx Family Diabetes: Yes Hx Family Cancer: Yes - Lung Hx Family;Other: thyroid Physical Exam - Physical Exam General Appearance: Alert, Anxious, Obese, Well Developed, Well Groomed, Well Hydrated, Well Nourished Eye Exam: bilateral normal Ears, Nose, Throat: hearing grossly normal, normal ENT inspection, normal pharynx Neck: non-tender, full range of motion, supple, normal inspection Respiratory: chest non-tender, lungs clear, normal breath sounds, no respiratory distress, no accessory muscle use Cardiovascular/Chest: normal peripheral pulses, regular rate, rhythm, no edema, no gallop, no JVD, no murmur Peripheral Pulses: radial,right: 2+, radial,left: 2+ Gastrointestinal/Abdominal: normal bowel sounds, non tender, soft Back Exam: normal inspection, no CVA tenderness, no vertebral tenderness Extremity: normal range of motion, non-tender, normal inspection Neurologic: information assurance analyst II-XII nml as tested, no motor/sensory deficits, alert, normal mood/affect, oriented x 3 Skin Exam: normal color, warm/dry Lymphatic: no adenopathy Progress - Progress Progress: Differential diagnosis: Patient is, acute AL, anxiety, URI among others. 05/10/19 20:56 Patient reassured and will start on Benadryl and Claritin for his congestion. Patient will start taking his medications as directed by his PCP. Plan to discharge home at this time. Patient and his voiced understanding and agreement with the plan of care. Pablo Cheema M.D. #[id number] Departure - Departure Clinical Impression: Palpitations with regular cardiac rhythm, Congestion of both ears Eustachian tube dysfunction Qualifiers: Laterality: bilateral Qualified Code(s): H69.83 - Other specified disorders of Eustachian tube, bilateral Time of Disposition: 21:00 Disposition: Discharge to Home or Self Care Condition: Good Departure Forms: ED Discharge - Pt. Copy, Patient Portal Self Enrollment Instructions: Palpitations (DC), Eustachian Tube Problems (DC), Cough, Runny Nose, and the Common Cold (DC) Diet: resume usual diet Activity: increase activity as tolerated Referrals: SYDNEY ROSENTHAL [Primary Care Provider] - 1 Week Home Medications: Ambulatory Orders Lisinopril [Prinivil] 20 mg PO DAILY 01/15/14 Metoprolol Succinate [Metoprolol Succinate ER] 50 mg PO BID 04/10/18 Ciprofloxacin [Cipro] 500 mg PO BID #14 tab 09/19/18 metroNIDAZOLE [Flagyl] 500 mg PO BID #14 tab 09/19/18 Acetaminophen [Tylenol] 650 mg PO Q6H #50 tab 05/02/19 Oseltamivir Capsule [Tamiflu] 75 mg PO DAILY 5 Days #5 capsule 05/02/19
[2019-05-10 21:14] VITALS: TEMP 98.6; O2SAT 97
[2019-05-10 21:35] VITALS: BP 135/92
== END 2019-05-10 21:10 | disposition home or self-care (01) ==
LOC: ER 20:04
DX: R00.2 Palpitations (principal); H69.83 Other specified disorders of Eustachian tube, bilateral; R09.81 Nasal congestion; I48.91 Unspecified atrial fibrillation; I10 Essential (primary) hypertension; Z79.899 Other long term (current) drug therapy; Z87.891 Personal history of nicotine dependence